=== PATIENT | female | born 1965 | race Hispanic/Latino ===

== ENCOUNTER 2021-11-22 12:11 | Emergency (ER) | payer MEDICAID ==
[~2021-11-22] VITALS: Ht 162.6 cm; Wt 72.6 kg
[2021-11-22 12:12] VITALS: BP 171/91
[2021-11-22] MEDS ORDERED: MECLIZINE HCL 25 MG TABLET PO ONE (12:30)
[2021-11-22] MEDS ORDERED: ACETAMINOPHEN 500 MG TABLET PO ONE (12:30)
[2021-11-22] MEDS ORDERED: CYCLOBENZAPRINE HCL 10 MG TABLET PO ONE (12:30)
[2021-11-22] MEDS ORDERED: ACETAMINOPHEN 500 MG TABLET ONE (13:01)
[2021-11-22] MEDS ORDERED: MECLIZINE HCL 25 MG TABLET ONE (13:01)
[2021-11-22] MEDS ORDERED: CYCLOBENZAPRINE HCL 10 MG TABLET ONE (13:01)
[2021-11-22] MEDS ORDERED: ONDA4TAB10 PO (13:32)
[2021-11-22] MEDS ORDERED: MECL-226 PO (13:32)
[2021-11-22] MEDS ORDERED: ACET-2247 PO (13:32)
[2021-11-22] MEDS ORDERED: CYCL10TA16 PO (13:32)
== END 2021-11-22 13:45 | disposition home or self-care (01) ==
LOC: EDH 12:11
DX: S00.93XA Contusion of unspecified part of head, initial encounter (principal); F07.81 Postconcussional syndrome; E11.9 Type 2 diabetes mellitus without complications; E78.00 Pure hypercholesterolemia, unspecified; I10 Essential (primary) hypertension; Z98.890 Other specified postprocedural states; Z79.899 Other long term (current) drug therapy; W22.8XXA Striking against or struck by other objects, initial encounter; Y93.89 Activity, other specified; Y92.89 Other specified places as the place of occurrence of the external cause; Y99.8 Other external cause status
CPT/HCPCS: 70450

== ENCOUNTER 2025-08-14 10:57 | Emergency (ER) | payer MEDICAID ==
[~2025-08-14] VITALS: Ht 162.6 cm; Wt 106.3 kg
[~2025-08-14 10:57] MED LIST: ACET-2247 PO; CYCL10TA16 PO; MECL-226 PO; ONDA-243 PO
[2025-08-14] MEDS ORDERED: IBUP-2077 PO (11:19)
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
[2025-08-14 11:26] VITALS: BP 185/92; PULSE 92; RESP 18; TEMP 97.6; O2SAT 98
== END 2025-08-14 11:52 | disposition home or self-care (01) ==
LOC: EDH 10:57
DX: G89.29 Other chronic pain (principal); M54.50 Low back pain, unspecified; E11.9 Type 2 diabetes mellitus without complications; E78.00 Pure hypercholesterolemia, unspecified; I10 Essential (primary) hypertension
CPT/HCPCS: 99282; 99283